=== PATIENT | male | born 1980 | race Caucasian/White ===

== ENCOUNTER 2021-10-08 19:59 | Emergency (ER) | payer MEDICARE, MEDICAID ==
[2021-10-08 21:59] LABS: CORONAVIRUS COVID-19 NAA NEGATIVE (NEGATIVE)
[2021-10-08] MEDS ORDERED: Escitalopram 10 MG Tab PO ONE (23:31)
[2021-10-08] MEDS ORDERED: Mirtazapine 15 MG Tab PO ONE (23:31)
[2021-10-09] MEDS ORDERED: Oxybutynin 5 MG Tab PO SCH ×2 (06:30→09:00)
[2021-10-09] MEDS ORDERED: ARIPiprazole 10 MG Tab PO SCH (06:30)
[2021-10-09] MEDS ORDERED: Levothyroxine 100 MCG Tab PO SCH (06:30)
[2021-10-09] MEDS ORDERED: Montelukast 10 MG Tab PO SCH (06:45)
[2021-10-09] MEDS ORDERED: ESCITALOPRAM PO SCH ×4 (09:00→21:00)
[2021-10-09] MEDS ORDERED: Mirtazapine 15 MG Tab PO SCH ×2 (21:00)
[2021-10-09] MEDS ORDERED: Escitalopram 10 MG Tab PO SCH (21:00)
== END 2021-10-09 10:45 | disposition home or self-care (01) ==
LOC: JP.ED 19:59
DX: F33.2 Major depressive disorder, recurrent severe without psychotic features (principal); F20.3 Undifferentiated schizophrenia; D82.1 Di George's syndrome; N32.81 Overactive bladder; E03.1 Congenital hypothyroidism without goiter; D80.0 Hereditary hypogammaglobulinemia; E03.9 Hypothyroidism, unspecified; Z88.2 Allergy status to sulfonamides; Z79.899 Other long term (current) drug therapy; Z20.822 Contact with and (suspected) exposure to COVID-19
CPT/HCPCS: 0241U; 36415; 80053; 80143; 80179; 80305-QW; 80307; 81003; 84443; 85025; 99283; 99284; A9270-GY

== ENCOUNTER 2021-12-05 13:14 | Emergency (ER) | payer MEDICARE, MEDICAID ==
[2021-12-05 14:12] LABS: CORONAVIRUS COVID-19 NAA NEGATIVE (NEGATIVE)
== END 2021-12-05 15:53 | disposition home or self-care (01) ==
LOC: JP.ED 13:14
DX: K52.9 Noninfective gastroenteritis and colitis, unspecified (principal); E03.9 Hypothyroidism, unspecified; Z88.2 Allergy status to sulfonamides; Z79.899 Other long term (current) drug therapy; Z20.822 Contact with and (suspected) exposure to COVID-19
CPT/HCPCS: 0241U; 36415; 80048; 85025; 87493; 99282; 99284

== ENCOUNTER 2022-01-04 17:26 | Emergency (ER) | payer MEDICARE, MEDICAID ==
[2022-01-04 19:24] LABS: CORONAVIRUS COVID-19 NAA NEGATIVE (NEGATIVE)
== END 2022-01-04 21:37 | disposition home or self-care (01) ==
LOC: JP.ED 17:26
DX: R45.851 Suicidal ideations (principal); R44.0 Auditory hallucinations; F33.2 Major depressive disorder, recurrent severe without psychotic features; D82.1 Di George's syndrome; E03.9 Hypothyroidism, unspecified; Z20.822 Contact with and (suspected) exposure to COVID-19; Z79.899 Other long term (current) drug therapy; Z88.2 Allergy status to sulfonamides
CPT/HCPCS: 0241U; 36415; 80053; 80305-QW; 80307; 84443; 85025; 99283; 99285

== ENCOUNTER 2022-01-28 18:37 | Emergency (ER) | payer MEDICARE, MEDICAID ==
[2022-01-28] MEDS ORDERED: Cephalexin 250 MG Cap PO ONE (19:49)
[2022-01-28] MEDS ORDERED: Acetaminophen 500 MG Tab PO ONE (21:11)
== END 2022-01-29 10:04 ==
LOC: JP.ED 18:37
DX: F20.9 Schizophrenia, unspecified (principal); F33.2 Major depressive disorder, recurrent severe without psychotic features; R45.851 Suicidal ideations; F41.9 Anxiety disorder, unspecified; Z79.899 Other long term (current) drug therapy; Z88.2 Allergy status to sulfonamides; Z88.6 Allergy status to analgesic agent; Z20.822 Contact with and (suspected) exposure to COVID-19
CPT/HCPCS: 36415; 80048; 80143; 80179; 80305; 80307; 85025; 99285; A9270; U0002; 99283